=== PATIENT | female | born 1970 | race Caucasian/White ===

== ENCOUNTER 2019-02-17 08:28 | Emergency (ER) | payer MEDICAID ==
--- NOTE | 2019-02-17 09:02 | EDM.PDOC ---
ED HPI GENERAL MEDICAL PROBLEM - General Chief Complaint: Back Pain or Injury Stated Complaint: BACK PAIN Time Seen by Provider: 02/17/19 09:01 Source of Information: Reports: Patient History Limitations: Reports: No Limitations - History of Present Illness INITIAL COMMENTS - FREE TEXT/NARRATIVE: 48-year-old female presents to the ED with diffuse left sided low back pain the last 3-4 days duration. No known injuries. Spontaneous occurrence. 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 She states she's had 4 more back surgeries with spinal fusion procedure. States pain was better in her lower extremities for about 3 months but has since returned and stayed. Currently is no worse than normal. 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 It does not hurt to breathe. She is able to localize some pain along her lateral left lower ribs. Denies any fever chills cough or genitourinary complaints. Onset: Gradual Onset Date: 02/13/19 Duration: Day(s):, Resolved Prior to Arrival Location: Reports: Back (Left mid and lower ) Quality: Reports: Ache (back pain.), Throbbing Severity: Moderate Improves with: Reports: Rest Worsens with: Reports: Movement (Certain movements make it worse.) Context: Denies: Activity, Exercise, Lifting, Sick Contact, Trauma, Other Associated Symptoms: Reports: Malaise, Weakness. 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: Other (see below) (Aleve 2 tablets every 8 hours) Left Lower Back Pain Score (Numeric/FACES): 10 - Related Data Allergies Allergy/AdvReac Type Severity Reaction Status Date / Time meperidine [From Demerol] Allergy Itching Verified 02/17/19 08:43 Home Meds: Home Meds Cyclobenzaprine [Flexeril] 10 mg PO BEDTIME PRN #7 tab 02/17/19 [Rx] oxyCODONE HCl/Acetaminophen [Percocet 5-325 mg Tablet] 1 - 2 each PO Q4H PRN # 24 tablet 02/17/19 [Rx] predniSONE 20 mg PO ASDIRECTED #18 tab 02/17/19 [Rx] Past Medical History BR[employer]GE [employer]ATOR SLIP History: Reports: - Past Surgical History Other Cardiovascular Surgeries/Procedures: defibrillator for preventive for CPVT Social & Family History - Tobacco Use Smoking Status *Q: Current Every Day Smoker Years of Tobacco use: 30 Packs/Tins Daily: 0.5 - Caffeine Use Caffeine Use: Reports: Coffee - Recreational Drug Use Recreational Drug Use: No - Living Situation & Occupation Living situation: Reports: Single Occupation: Employed ED ROS GENERAL - Review of Systems Review Of Systems: See Below Constitutional: Reports: Malaise, Fatigue. Denies: Fever, Chills HEENT: Reports: No Symptoms (Not sleeping very well.) Respiratory: Reports: No Symptoms Cardiovascular: Reports: No Symptoms Endocrine: Reports: No Symptoms GI/Abdominal: Reports: No Symptoms : Reports: No Symptoms Musculoskeletal: Reports: Back Pain Skin: Reports: No Symptoms (Chronic low back pain) Neurological: Reports: Paresthesia (Paresthesias numbness tingling and burning sensation both lower extremities since last) Psychiatric: Reports: No Symptoms ( spinal surgery.) Hematologic/Lymphatic: Reports: No Symptoms ED EXAM,LOWER BACK PAIN/INJURY - Physical Exam Exam: See Below Exam Limited By: No Limitations General Appearance: Alert, WD/WN, Mild Distress, Other Respiratory/Chest: No Respiratory Distress, Lungs Clear, Normal Breath Sounds, No Accessory Muscle Use, Chest Non-Tender Cardiovascular: Normal Peripheral Pulses, Regular Rate, Rhythm, No Edema, No Murmur, No Rub Back Exam: Normal Inspection, Decreased Range of Motion, Muscle Spasm (There is marked paraspinal muscle spasm from thoracic 6 to lumbar 3 on the left side. Point of maximal tenderness appears to be over 12 rib head joint and L1 facet joint), Paraspinal Tenderness (No pain on the right side.), Other. No: Full Range of Motion, CVA Tenderness (L), CVA Tenderness (R), Vertebral Tenderness Extremities: Normal Inspection, Normal Range of Motion, Non-Tender, No Pedal Edema Neurological: Alert ( Marked on the left side.), Normal Mood/Affect, CN II-XII Intact, No Motor/Sensory Deficits, Oriented x 3. No: Normal Dorsiflexion, Normal Reflexes DTR - Lower Extremities: 0: Ankle (R), Ankle (L), 1+: Knee (R), Knee (L) Psychiatric: Normal Affect, Normal Mood Skin Exam: Warm, Dry, Intact Course - Vital Signs Last Recorded V/S: Last Vital Signs Temp 36.8 C 02/17/19 08:37 Pulse 86 02/17/19 08:37 Resp 13 02/17/19 08:37 BP 184/102 H 02/17/19 08:37 Pulse Ox 100 02/17/19 08:37 - Radiology Interpretation Free Text/Narrative:: 48-year-old female presents the ED with acute onset of left sided low back pain and mid back pain. Started about 3-4 days ago spontaneously for no good reason. She's had 4 previous spinal surgeries including spinal fusion. She has chronic burning paresthesias in both lower extremities after the last surgery. It is no worse than before. Examination shows paraspinal muscle spasm on the left side from thoracic 6 to lumbar 3 vertebral. Point of maximal tenderness appears to be over the T12 facet joint rib head and the L1 facet joint. Hopefully this is more mechanical low back pain and inflammation since I can make it hurt on exam. Plan prednisone 20 mg twice a day for 6 days then once in the morning only for another 6 days. She will continue Aleve 2 tablets every 8 hours to relieve pain and inflammation. Advised GI protection with Prilosec 20 mg once daily or Pepcid 20 mg twice a day. Except as 5/325 mg one or 2 every 4-6 hours needed for pain relief. Flexeril 10 mg once daily at bedtime when necessary for muscle spasm relief-- 7 tablets provided. If not completely back to normal in 10 -12 days she is to follow-up with her personal care physician. Imaging may be warranted at that time Departure - Departure Time of Disposition: 09:09 Disposition: Home, Self-Care 01 Condition: Fair Clinical Impression: Acute lumbar back pain Qualifiers: Back pain laterality: left Sciatica presence: with sciatica Sciatica laterality : bilateral sciatica Qualified Code(s): M54.42 - Lumbago with sciatica, left side - Discharge Information *PRESCRIPTION DRUG MONITORING PROGRAM REVIEWED*: Not Applicable *COPY OF PRESCRIPTION DRUG MONITORING REPORT IN PATIENT NISREEN: Not Applicable Prescriptions: Cyclobenzaprine [Flexeril] 10 mg PO BEDTIME PRN #7 tab PRN Reason: relief of muscle spasm oxyCODONE HCl/Acetaminophen [Percocet 5-325 mg Tablet] 1 - 2 each PO Q4H PRN # 24 tablet PRN Reason: pain relief. predniSONE 20 mg PO ASDIRECTED #18 tab Instructions: Acute Back Pain, Adult, Pain Medicine Instructions, [id number] Referrals: Ramon Valenzuela MD [Primary Care Provider] - Forms: ED Department Discharge, ED Return to Work/School Form Additional Instructions: Evaluation the emergency room in regards to acute exacerbation of low back pain. You had a history of chronic low back pain having had 4 previous surgeries under lumbar spine with fusion procedure. If chronic pain in both lower extremities that did not improve remarkably after's surgery. To four-day history of left mid and lower back pain. Examination reveals marked paraspinal muscle spasm on the left side from thoracic 7 level down to lumbar 3 area. It appears this is most likely facet joint in origin and rib head subluxation. No clinical evidence of nerve root entrapment. Treatment is conservative. Try minimize twisting turning and prolonged standing until pain settles down. Treatment is to be prednisone 20 mg twice daily with breakfast and supper for 6 days and then 1 in the morning only for another 6 days. Continue Aleve 2 tablets every 8 hours to relieve pain and inflammation. Suggest GI protection either with Pepcid 20 mg twice a day or Prilosec 20 mg once daily well on these medications. Percocet tabs 5/325 mg one or 2 every 4-6 hours needed for pain relief. Should not operate a motor vehicle while taking these pain medications. Flexeril 10 mg at bedtime only to try and help sleep and relieve muscle spasm. Not markedly improved in 10 days' time and imaging of your lower back is likely going to be required most likely MRI. Please follow-up with personal care physician in this regard Sepsis Event Note - Evaluation Sepsis Screening Result: No Definite Risk - Focused Exam Vital Signs: Vital Signs Temp Pulse Resp BP Pulse Ox 02/17/19 08:37 36.8 C 86 13 184/102 H 100 Date Exam was Performed: 02/17/19 Time Exam was Performed: 09:26
== END 2019-02-17 09:32 | disposition home or self-care (01) ==
LOC: JD.ED 08:28
DX: M54.42 Lumbago with sciatica, left side (principal); F17.210 Nicotine dependence, cigarettes, uncomplicated; Z88.8 Allergy status to other drugs, medicaments and biological substances
CPT/HCPCS: 99283

== ENCOUNTER 2020-10-17 20:54 | Emergency (ER) | payer MEDICAID | END 2020-10-17 23:00 | disposition left against medical advice (07) | LOC: JD.ED 20:54 | DX: R50.9 Fever, unspecified (principal); Z53.21 Procedure and treatment not carried out due to patient leaving prior to being seen by health care provider; Z20.822 Contact with and (suspected) exposure to COVID-19 | CPT/HCPCS: U0002 ==

== ENCOUNTER 2023-06-20 17:40 | Emergency (ER) | payer MEDICAID ==
[2023-06-20] MEDS: Lidocaine 1% 10 ML MDV INJECT ONE (18:46)
== END 2023-06-20 19:10 ==
LOC: JD.ED 17:40
DX: S61.213A Laceration without foreign body of left middle finger without damage to nail, initial encounter (principal); F17.210 Nicotine dependence, cigarettes, uncomplicated; I10 Essential (primary) hypertension; Z79.899 Other long term (current) drug therapy; Z88.8 Allergy status to other drugs, medicaments and biological substances; W26.0XXA Contact with knife, initial encounter
CPT/HCPCS: 12002; 99282; 99283; J3490

== ENCOUNTER 2025-01-13 22:16 | Emergency (ER) | payer MEDICAID ==
[2025-01-14] MEDS: Ketorolac 30 MG/ML SDV IVPUSH ONE (00:44)
[2025-01-14 00:56] LABS: BASOPHILS ABSOLUTE AUTO 0.1 K/mm3 (0.0-0.2); BASOPHILS PERCENT AUTO 0.4 % (0.0-1.0); EOSINOPHILS ABSOLUTE AUTO 0.2 K/mm3 (0.0-0.4); EOSINOPHILS PERCENT AUTO 1.1 % (0.0-6.0); IMMATURE GRAN ABSOLUTE AUTO 0.12 K/mm3 (0.00-0.05); IMMATURE GRAN PERCENT AUTO 0.6 % (0.0-0.4); LYMPHOCYTES ABSOLUTE AUTO 3.4 K/mm3 (1.0-4.8); LYMPHOCYTES PERCENT AUTO 18.3 % (24.0-44.0); MEAN PLATELET VOLUME 10.1 fl (9.4-12.3); MONOCYTES ABSOLUTE AUTO 1.4 K/mm3 (0.0-0.8); MONOCYTES PERCENT AUTO 7.5 % (0.0-8.0); NEUTROPHILS ABSOLUTE AUTO 13.5 K/mm3 (1.8-7.7); NEUTROPHILS PERCENT AUTO 72.1 % (41.0-71.0); NRBC ABSOLUTE 0.00 (0.00-0.02); NRBC PERCENT 0.0 % (0.0-0.2); PLATELET COUNT,PLT 325 K/mm3 (150-400); RED BLOOD CELL COUNT 4.63 M/mm3 (4.10-5.30); WHITE BLOOD CELL COUNT,WBC 18.71 K/mm3 (3.9-11.3)
[2025-01-14 01:15] LABS: A/G RATIO 1.2 (1-2); ALANINE AMINOTRANSFERASE,ALT 16.0 U/L (14-59); ASPARTATE AMNIOTRANSFERASE,AST 14.0 U/L (15-37); BILIRUBIN TOTAL 0.4 mg/dL (0.2-1.0); BLOOD UREA NITROGEN,BUN 12.0 mg/dL (7-18); CARBON DIOXIDE,CO2 28.0 mEq/L (21-32); CHLORIDE,CL 103.0 mEq/L (98-107); CREATININE 0.9 mg/dL (0.55-1.02); EST CRCL DRUG DOSING (CG) 62.42 mL/min; ESTIMATED GFR 76.0 mL/min (>60); GLUCOSE RANDOM 105.0 mg/dL (70-99); PROTEIN TOTAL,TP 7.6 g/dl (6.4-8.2); SODIUM,NA 141.0 mEq/L (136-145)
[2025-01-14 01:27] LABS: POTASSIUM,K 4.1 mEq/L (3.5-5.1)
== END 2025-01-14 01:44 | disposition home or self-care (01) ==
LOC: JD.ED 22:16
DX: M54.50 Low back pain, unspecified (principal); I10 Essential (primary) hypertension; F17.200 Nicotine dependence, unspecified, uncomplicated; Z88.8 Allergy status to other drugs, medicaments and biological substances; Z79.899 Other long term (current) drug therapy
CPT/HCPCS: 36415; 72131; 80053; 85025; 96374; 99284; J1885